=== PATIENT | male | born 1965 | race Caucasian/White ===

== ENCOUNTER 2020-04-23 10:13 | Emergency (ER) | payer OTHER ==
[~2020-04-23] VITALS: Ht 177.8 cm; Wt 104.3 kg
[~2020-04-23 10:13] MED LIST: CEPHALEXIN 500500 M3 PO; FLOMAX0.4 MG PO; HYDROCODONE-AP1 EAC6 PO
[2020-04-23] MEDS ORDERED: FLONASE 0.05%50 MCG NARES (10:38)
[2020-04-23] MEDS ORDERED: HYDROCODON-ACE1 EAC7 PO (11:39)
[2020-04-23] MEDS ORDERED: [UNRECOGNIZED DRUG - OTHER] (11:46)
[2020-04-23 11:57] VITALS: BP 125/70
== END 2020-04-23 11:57 | disposition home or self-care (01) ==
LOC: M.ERS 10:13
DX: S92.354A Nondisplaced fracture of fifth metatarsal bone, right foot, initial encounter for closed fracture (principal); F12.90 Cannabis use, unspecified, uncomplicated; Z88.5 Allergy status to narcotic agent; Z79.899 Other long term (current) drug therapy; Z98.890 Other specified postprocedural states; X50.1XXA Overexertion from prolonged static or awkward postures, initial encounter; Y93.89 Activity, other specified; Y92.89 Other specified places as the place of occurrence of the external cause; Y99.9 Unspecified external cause status

== ENCOUNTER 2020-07-20 08:23 | Inpatient (IN) | payer OTHER ==
[~2020-07-20] VITALS: Ht 177.8 cm; Wt 104.3 kg
[~2020-07-20 08:23] MED LIST changes: +FLONASE 0.05%50 MCG NARES; +HYDROCODON-ACE1 EAC7 PO; +[UNRECOGNIZED DRUG - OTHER]
[2020-07-20 08:27] VITALS: BP 138/88
[2020-07-20 08:56] LABS: ABSOLUTE EOSINOPHILS 0.2 thou/uL (0.0-0.7); ABSOLUTE LYMPHOCYTES 1.7 thou/uL (0.8-5.3); ABSOLUTE MONOCYTES 0.4 thou/uL (0.0-1.2); HEMATOCRIT 39.7 % (42.0-52.0); HEMOGLOBIN 13.6 gm/dL (14.0-18.0); LYMPHOCYTES 38.3 %; MCH 30.7 pg (26.0-34.0); MCHC 34.2 g/dL (28.0-37.0); MCV 89.7 fL (80.0-100.0); MONOCYTES 9.4 %; MPV 6.6 fl. (7.2-11.1); NUCLEATED RBCS 0 /100WBC; PLATELET COUNT* 246 thou/uL (150-400); POLYS 46.3 %; RBC 4.42 mil/uL (4.50-6.00); RDW-CV 12.7 % (10.5-14.5); WBC 4.4 thou/uL (4.0-11.0)
[2020-07-20 09:00] LABS: CALCIUM 9.3 mg/dL (8.5-10.1); POTASSIUM 3.9 mmol/L (3.5-5.1)
[2020-07-20 09:12] LABS: DIRECT BILIRUBIN 0.1 mg/dL (<0.1-0.3); MAGNESIUM 1.9 mg/dL (1.8-2.4); PHOSPHORUS* 2.5 mg/dL (2.5-4.9); TOTAL BILIRUBIN 0.5 mg/dL (<0.1-1.0); TOTAL PROTEIN 7.2 g/dL (6.4-8.2)
[2020-07-20 10:10] LABS: URINE BILIRUBIN NEGATIVE (Negative); URINE BLOOD TRACE (Negative); URINE CLARITY CLEAR; URINE COLOR YELLOW; URINE GLUCOSE-RANDOM NEGATIVE (Negative); URINE KETONES NEGATIVE (Negative); URINE LEUKOCYTES NEGATIVE (Negative); URINE NITRITE NEGATIVE (Negative); URINE PROTEIN NEGATIVE (Negative); URINE UROBILINOGEN 0.2 E.U./dl (0.2-1.0)
[2020-07-20 14:45] VITALS: BP 129/89
--- NOTE | 2020-07-20 15:23 | EXE ---
[place] [address] STRESS ECHOCARDIOGRAM Name: AKASH JUAREZ Room: [address] IN [facility]#: [id number] Admission: 07/20/20 Attend Phys: Génesis Martínez MD Discharge: Date of : 67 Date of Service: 07/20/20 1523 Report #: [id number] THIS REPORT FOR: cc: Сергей Avila John E. DO Holkins, John M. MD [facility] ~ APPROVED REPORT Study performed: 07/20/2020 13:44:35 Exam: Stress Echocardiogram Indication: Chest pain Patient Location: ER Stress Nurse: Codi Walters RN Supervising Physician: Сергей Garza MD Status: routine Ht: 5 ft 10 in HR: 49 bpm BP: 138/93 mmHg Rhythm: NSR Medical History Medications: ASA Cardiac Risk Factors: FHX of CAD Procedure The patient underwent an Exercise Stress Test using the Jony Protocol. Blood pressure, heart rate, and EKG were monitored. An Echocardiogram was performed by telecasting technician in four stages in quad fashion. At peak stress, four selected images were obtained and placed side by side with resting images for comparison. Stress Test Details Stress Test: Exercise stress testing was performed using a Jony protocol. HR Resting HR: 49 bpm Max Heart Rate (APMHR): 166 bpm Max HR Achieved: 154 bpm Target HR (85% APMHR): 141 bpm % of APMHR: 92 Recovery HR: 76 bpm HR response to stress: Normal HR response to stress BP Resting BP: 138/93 [place] [address] STRESS ECHOCARDIOGRAM Name: AKASH JUAREZ Room: [address]#: [id number] Admission: 07/20/20 Attend Phys: Génesis Martínez MD Discharge: Date of : 67 Date of Service: 07/20/20 1523 Report #: [id number] Max BP: 194/84 mmHg Recovery BP: 149/87 mmHg BP response to stress: Normal blood pressure response to stress. ECG Resting ECG: sinus rhythm, normal EKG Stress ECG: no ischemic st-t changes Arrhythmia: no arrhythmias Recovery ECG: no ischemic st-t change Clinical Reason for Termination: Maximal effort Exercise duration: 10 min 50 sec Highest Stage Achieved: Stage 4: 4.2 mph at 16% grade. Exercise capacity: 12.88 METs Pre-Stress Echo The resting Echocardiogram showed normal left ventricular contractility with an estimated Ejection Fraction of about 55-60%. Normal wall motion in all segments on baseline images. Post-Stress Echo The stress Echocardiogram showed normal left ventricular contractility with an estimated Ejection Fraction of about >70%. Normal augmentation of wall motion in all segments on post stress images. Conclusion Clinical Response: Non-ischemic Exercise Capacity: Superior Stress ECG Response: Non-ischemic Stress Echo Images: Non-ischemic Other Information Study Quality: Good <ELECTRONICALLY SIGNED> By: Сергей Garza MD, FAC 07/20/20 1523 1523 1523 Сергей Garza MD, FAC /INF
[2020-07-20 16:51] VITALS: BP 129/89
--- NOTE | 2020-07-20 17:24 | NUR ---
PT A&OX4 VSS. PT ARRIVED ON UNIT APPROX 1500 THIS AFTERNOON. PT DENIES SHORTNESS OF AIR, CHEST PAIN OR NAUSEA. PT UP AD EYAL, GAIT STEADY. IV TO RAC DC'S PRIOR TO PT LEAVING UNIT. PT SINUS ON MONITOR. PT TOLERATED PO INTAKE/WATER WITHOUT DIFFICULTY. PT STATES UNDERSTNDING OF DC INSTRUCTIONS AND FOLLOW-UP INFORMATION PROVIDED. PT DRESSED INDEPENDENTLY. PT DECLINED WHEELCHAIR AND WAS ESCORTED TO PRIVATE VEHICLE BY NURSING STAFF.
[2020-07-20 17:33] VITALS: BP 129/89
--- NOTE | 2020-07-21 12:09 | EKG ---
[place] [address] ELECTROCARDIOGRAM REPORT Name: AKASH JUAREZ Room: [address] IN [facility].#: [id number] Admission: 07/20/20 Attend Phys: Génesis Martínez MD Discharge: 07/20/20 Date of : 67 Date of Service: 07/20/20826 Report #: [id number] THIS REPORT FOR: //name// [facility] ED Test Date: 2020-07-20 Test Time: 08:27:02 Pat Name: AKASH JUAREZ Department: Room: [facility] Gender: M Pipe Fitter Ammonia: NOELLE : 1965 Requested By: Jared Henson Order Number: [id number] MD: Сергей Garza Measurements Intervals [place] Rate: 54 P: 37 IN: 238 QRS: 69 QRSD: 117 T: 58 QT: 434 QTc: 412 Interpretive Statements Sinus rhythm Prolonged IN interval Nonspecific intraventricular conduction delay Borderline low voltage, extremity leads Compared to ECG 11/17/2016 03:35:49 Intraventricular conduction delay now present T-wave abnormality no longer present Electronically Signed On 07-21-2020 12:09:13 CDT by Сергей Garza [email or web address] <ELECTRONICALLY SIGNED> By: Сергей Garza MD, [facility] 07/21/20 1209 6 6 Сергей Garza MD, [facility] /EPI
== END 2020-07-20 17:30 | disposition home or self-care (01) | DRG 282 ==
LOC: M.ERS 08:23 → M.TBA-ER 10:06 → M.2W 14:45
PROVIDERS: Emergency Medicine; ADMIT Family Medicine; ATTEND Family Medicine
DX: I21.A1 Myocardial infarction type 2 (principal); N40.0 Benign prostatic hyperplasia without lower urinary tract symptoms; R20.0 Anesthesia of skin; Z20.822 Contact with and (suspected) exposure to COVID-19; Z79.899 Other long term (current) drug therapy; Z88.5 Allergy status to narcotic agent

== ENCOUNTER → 2020-09-05 | Outpatient (CLI) | payer OTHER | LOC: M.CT 08-22 10:30 | PROVIDERS: ATTEND Internal Medicine | DX: Z13.6 Encounter for screening for cardiovascular disorders (principal) ==